=== PATIENT | female | born 1995 | race Caucasian/White ===

== ENCOUNTER 2019-12-19 00:04 | Emergency (ER) | payer OTHER ==
[~2019-12-19] VITALS: Ht 170.2 cm; Wt 81.6 kg
[2019-12-19 00:04] VITALS: BP 139/87
--- NOTE | 2019-12-19 00:11 | NUR ---
24 Y/O FEMALE BIB SELF C/O LOWER BACK PAIN 8/10 AFTER LIFTING A HEAVY OBJECT. PT STILL ABLE TO AMBULATE AND DENIES ANY NUMBNESS. ALL OTHER SYSTEMS WNL. PMH: DENIES ALLERGIES: AMOXICILLIN
--- NOTE | 2019-12-19 00:11 | NUR ---
w/c assist to bed 12
[2019-12-19] MEDS ORDERED: CYCLOBENZAPRINE 10 MG TAB PO ONE (00:25)
[2019-12-19] MEDS ORDERED: KETOROLAC 60 MG/2 ML VIAL IM ONE (00:25)
[2019-12-19 01:05] VITALS: BP 139/87
--- NOTE | 2019-12-19 01:05 | NUR ---
Patient discharged with v/s stable. Written and verbal after care instructions given and explained. Patient alert, oriented and verbalized understanding of instructions. Ambulatory with to car. All questions addressed prior to discharge. ID band removed. Patient advised to follow up with PMD. Rx of TORADOL, FLEXERIL given. Patient educated on indication of medication including possible reaction and side effects. Opportunity to ask questions provided and answered.
== END 2019-12-19 01:05 | disposition home or self-care (01) ==
LOC: MED 00:04
DX: M54.5 Low back pain (principal); R00.0 Tachycardia, unspecified; Z88.0 Allergy status to penicillin; X50.0XXA Overexertion from strenuous movement or load, initial encounter; Y93.89 Activity, other specified; Y92.89 Other specified places as the place of occurrence of the external cause; Y99.8 Other external cause status
CPT/HCPCS: 81025; 96372; 99283; J1885

== ENCOUNTER 2020-05-23 18:23 | Emergency (ER) | payer OTHER ==
[~2020-05-23] VITALS: Ht 172.7 cm; Wt 113.4 kg
--- NOTE | 2020-05-23 18:35 | NUR ---
PT AMBULATED TO ER BED 12.
[2020-05-23 18:36] VITALS: BP 131/80
--- NOTE | 2020-05-23 18:36 | NUR ---
24 Y/O FEMALE C/O ALLERGIC REACTION [id number] AGO AFTER EATING AVOCADO FROM [place] [place]. PT STATES SHE WAS UNAWARE OF AVOCADO IN SANDWICH AND IS NOW HAVING ITCHINESS TO THROAT, FEELS SOB, SWELLING AND ERYTHEMA TO CHEECKS AND LIPS. PT PLACED ON AUTOMOTIVE ELECTRICIAN WITH SPO2 AT 99% RA. DENIES PMH ALLERGIES TO AVOCADO
[2020-05-23] MEDS ORDERED: diphenhydrAMINE 50 MG/ML VIAL IVP ONE (18:40)
[2020-05-23] MEDS ORDERED: NACL 0.9% 1,000 ML IV ONE (18:40)
[2020-05-23] MEDS ORDERED: FAMOTIDINE 20 MG/2 ML VIAL IVP ONE (18:40)
[2020-05-23] MEDS ORDERED: methylPREDNISolone SS 125 MG/2 ML VIAL IVP ONE (18:40)
[2020-05-23] MEDS ORDERED: EPINEPHrine 1:1000 - 1 MG/ML AMP IM ONE (18:40)
--- NOTE | 2020-05-23 19:16 | NUR ---
Gave report to Simin PEREZ and Amira PEREZ, transfer of care at this time. Gave epi 0.3mL IM unable to obtain IV access after 1 time, RN's aware. Medications left with Amira RX: Solumedrol 125mg (2mL) Famotidine 20mg (2mL) Benadryl 25mg (0.5mL)
--- NOTE | 2020-05-23 19:20 | NUR ---
RECIVED REPORT FROM ANNIE PEREZ. TRANSFER OF CARE. PATIENT A&O X4. ABLE TO SPEAK WITHOUT DIFFICULTY. PATIENT RESPIRATIONS ARE EVEN AND UNLABORED. MINOR FACIAL EDEMA NOTED. "I FEEL BETTER, I DON'T HAVE MUCH TROUBLE SWALLOWING." VSS. PATIENT REMAINS ON SUPPORT SERVICES COORDINATOR.
--- NOTE | 2020-05-23 21:32 | NUR ---
PATIENT RESPIRATIONS ARE EVEN AND UNLABORED. FACIAL EDMEA HAS DECREASED. PER PATIENT, " I FEEL A LOT BETTER." ERMD MADE AWARE. PER ERMD WOULD LIKE PATIENT TO STAY FOR OBSERVATION FOR 1 MORE HOUR. PATIENT REMAINS ON CLOTH SANDER. VSS.
[2020-05-23] MEDS ORDERED: EPIN1KIT32 IM (22:25)
[2020-05-23] MEDS ORDERED: FAMO-90 PO (22:25)
[2020-05-23] MEDS ORDERED: DIPH25TA53 PO (22:25)
[2020-05-23] MEDS ORDERED: PRED20TA5 PO (22:25)
[2020-05-23 22:39] VITALS: BP 105/61
--- NOTE | 2020-05-23 22:39 | NUR ---
IV removed, catheter intact and site benign. Applied folded 4x4 gauze and tape to stop bleeding.
--- NOTE | 2020-05-23 22:39 | NUR ---
Patient discharged with v/s stable. Written and verbal after care instructions given and explained. Patient alert, oriented and verbalized understanding of instructions. Ambulatory with steady gait. All questions addressed prior to discharge. ID band removed. Patient advised to follow up with PMD. Rx of EPINEPHRIN, BENADRYL, PREDNISONE, PEPCID given. Patient educated on indication of medication including possible reaction and side effects. Opportunity to ask questions provided and answered.
== END 2020-05-23 22:39 | disposition home or self-care (01) ==
LOC: MED 18:23
DX: T78.2XXA Anaphylactic shock, unspecified, initial encounter (principal); Z79.899 Other long term (current) drug therapy; Z88.1 Allergy status to other antibiotic agents
CPT/HCPCS: 96361; 96372; 96374; 96375; 99284; J0171; J1200; J2930; J3490